=== PATIENT | female | born 1940 | race Caucasian/White ===

== ENCOUNTER → 2017-05-01 | Outpatient (CLI) | payer MEDICARE, BC ==
[~2017-05-01] MED LIST: ALEVE 220MG220 MG PO; CALCIUM + D 5001 TAB PO; CARDI-OMEGA1000 MG PO; GLUCOSAMINE & C1 TA1 PO; MULTIPLE VITAMI1 CAP PO; NAPROXEN220 MG PO; NORCO 325 MG-51 TAB PO; SYNTHROID0.112 MG/T PO; SYNTHROID0.125 MG PO; VITAMIN C BUFF500 MG PO; VITAMIN D1000 IU PO; VITAMINC250CH PO
== END ==
LOC: COL.RAD 11:07
DX: Z85.850 Personal history of malignant neoplasm of thyroid (principal); Z90.89 Acquired absence of other organs

== ENCOUNTER → 2018-05-13 | Outpatient (CLI) | payer MEDICARE, BC | LOC: COL.RAD 12:42 | DX: C73 Malignant neoplasm of thyroid gland (principal); Z90.89 Acquired absence of other organs ==

== ENCOUNTER → 2018-06-03 | Outpatient (CLI) | payer MEDICARE, BC | LOC: MC.RAD 08:19 | DX: Z12.31 Encounter for screening mammogram for malignant neoplasm of breast (principal); Z98.890 Other specified postprocedural states; Z85.3 Personal history of malignant neoplasm of breast ==

== ENCOUNTER → 2019-01-06 | Outpatient (CLI) | payer MEDICARE, BC | LOC: COL.LAB 08:42 | DX: Z01.812 Encounter for preprocedural laboratory examination (principal); Z85.3 Personal history of malignant neoplasm of breast ==

== ENCOUNTER 2019-05-16 21:01 | Emergency (ER) | payer MEDICARE, BC ==
[~2019-05-16] VITALS: Ht 160 cm; Wt 57.7 kg
[2019-05-16 21:06] VITALS: TEMP 96.9
[2019-05-16] MEDS ORDERED: NORCO 325 MG-51 TAB PO (22:46)
[2019-05-16] MEDS ORDERED: WALKER MC (22:46)
[2019-05-16 23:01] VITALS: BP 126/54; PULSE 93
== END 2019-05-16 23:01 | disposition home or self-care (01) ==
LOC: COL.ER 21:01
DX: S72.111A Displaced fracture of greater trochanter of right femur, initial encounter for closed fracture (principal); Z85.3 Personal history of malignant neoplasm of breast; W01.0XXA Fall on same level from slipping, tripping and stumbling without subsequent striking against object, initial encounter; Y92.009 Unspecified place in unspecified non-institutional (private) residence as the place of occurrence of the external cause

== ENCOUNTER → 2019-06-18 | Outpatient (CLI) | payer MEDICARE, BC ==
[~2019-06-18] MED LIST changes: +WALKER MC
== END ==
LOC: MC.RAD 09:04
DX: Z12.31 Encounter for screening mammogram for malignant neoplasm of breast (principal); Z98.890 Other specified postprocedural states; Z85.3 Personal history of malignant neoplasm of breast

== ENCOUNTER → 2020-06-20 | Outpatient (CLI) | payer MEDICARE, BC | LOC: MC.RAD 10:28 | DX: Z12.31 Encounter for screening mammogram for malignant neoplasm of breast (principal); Z85.3 Personal history of malignant neoplasm of breast ==

== ENCOUNTER → 2021-07-07 | Outpatient (CLI) | payer MEDICARE, BC | LOC: MC.RAD 11:30 | DX: Z12.31 Encounter for screening mammogram for malignant neoplasm of breast (principal) ==